=== PATIENT | female | born 1970 | race American Indian/Alaskan Native ===

== ENCOUNTER 2020-04-03 20:10 | Emergency (ER) | payer SELFPAY ==
[2020-04-03 20:28] VITALS: BP 180/109
--- NOTE | 2020-04-03 20:52 | Event Note ---
ED Screening Note ED Screening Note: cough that began two weeks ago states occasionally has production states she has sore throat no fever no n/v/d no CP no abd pain no SOB PMHx HTN, has not taken her medications in a year, previously use to be on hctz, amlodipine, lisinopril no allergies to meds This initial assessment/diagnostic orders/clinical plan/treatment(s) is/are subject to change based on patients health status, clinical progression and re- assessment by fellow clinical providers in the ED. Further treatment and workup at subsequent clinical providers discretion. Patient/guardian urged not to elope from the ED as their condition may be serious if not clinically assessed and managed. Initial orders include: cxr
--- NOTE | 2020-04-03 21:22 | XRay Report ---
CHEST 2 VIEWS INDICATION / CLINICAL INFORMATION: cough x 2 weeks. COMPARISON: None available. FINDINGS: SUPPORT DEVICES: None. HEART / MEDIASTINUM: No significant abnormality. LUNGS / PLEURA: No significant pulmonary or pleural abnormality. No pneumothorax. ADDITIONAL FINDINGS: Gastric lap band IMPRESSION: 1. No acute findings. Signer Name: Raymundo Modi MD Signed: 04/03/2020 9:17 PM Workstation Name: [id number]
== END 2020-04-03 21:00 | disposition left against medical advice (07) ==
LOC: ED 20:10
DX: J02.9 Acute pharyngitis, unspecified (principal); Z53.21 Procedure and treatment not carried out due to patient leaving prior to being seen by health care provider
CPT/HCPCS: 71046